=== PATIENT | male | born 1960 | race Caucasian/White ===

== ENCOUNTER 2020-07-27 09:33 | Outpatient (CLI) | payer BC, OTHER ==
[2020-07-27] MEDS ORDERED: LOVA20TA2 PO (09:49)
== END 2020-07-27 23:59 | disposition home or self-care (01) ==
LOC: STAR 09:33
PROVIDERS: ATTEND Orthopaedic Surgery
DX: Z02.9 Encounter for administrative examinations, unspecified (principal)

== ENCOUNTER 2020-08-04 05:41 | Inpatient (IN) | payer BC, OTHER ==
[~2020-08-04] VITALS: Ht 172.7 cm; Wt 71.0 kg
[~2020-08-04 05:41] MED LIST: LOVA20TA2 PO
[2020-08-04] MEDS ORDERED: LACTATED RINGERS 1,000 ML IV SCH (06:03)
[2020-08-04] MEDS ORDERED: CLINDAMYCIN 150 MG/ML, 6ML ONE (06:13)
[2020-08-04] MEDS ORDERED: CHLORHEXIDINE 15 ML UDC MM ONE (06:30)
[2020-08-04] MEDS ORDERED: LIDOCAINE-MPF 1%, 2ML INFIL ONE (06:30)
[2020-08-04] MEDS ORDERED: BUPIVACAINE LIPOSOME/PF 10ML INFIL ONE (06:42)
[2020-08-04] MEDS ORDERED: MIDAZOLAM 1 MG/ML, 2ML ONE (06:47)
[2020-08-04] MEDS ORDERED: FENTANYL PF 100 MCG/2ML ONE ×2 (06:47→09:56)
[2020-08-04] MEDS ORDERED: BUPIVACAINE/PF 0.5% ONE (08:17)
[2020-08-04] MEDS ORDERED: PROPOFOL 10 MG/ML, 20ML ONE (08:17)
[2020-08-04] MEDS ORDERED: DEXAMETHASONE 4 MG/ML, 1ML ONE (08:17)
[2020-08-04] MEDS ORDERED: CEFAZOLIN 1,000 MG ONE (08:17)
[2020-08-04] MEDS ORDERED: ROCURONIUM 10 MG/ML,10ML ONE (08:17)
[2020-08-04] MEDS ORDERED: ONDANSETRON 2MG/ML, 2ML ONE (08:17)
[2020-08-04] MEDS ORDERED: GLYCOPYRROLATE 0.2MG/1ML, 5ML ONE (08:17)
[2020-08-04] MEDS ORDERED: NEOSTIGMINE 1 MG/ML, 10ML ONE (08:17)
[2020-08-04] MEDS ORDERED: PROMETHAZINE 25 MG/ML, 1ML IVPush PRN (09:00)
[2020-08-04] MEDS ORDERED: OXYcodone 5 MG/5 ML ORAL.SOL UDC PO PRN (09:00)
[2020-08-04] MEDS ORDERED: hydrALAzine 20 MG/ML, 1ML IV PRN (09:00)
[2020-08-04] MEDS ORDERED: LORazepam 2 MG/ML, 1ML IVPush PRN (09:00)
[2020-08-04] MEDS ORDERED: ACETAMINOPHEN 325 MG TABLET PO PRN (09:00)
[2020-08-04] MEDS ORDERED: LABETALOL 5MG/ML, 20ML IV PRN (09:00)
[2020-08-04] MEDS ORDERED: ALBUTEROL SULFATE 2.5 MG/3 ML NPPB PRN (09:00)
[2020-08-04] MEDS ORDERED: MEPERIDINE/PF 25MG/0.5ML IVPush PRN (09:00)
[2020-08-04] MEDS ORDERED: OXYcodone 5 MG/5 ML ORAL.SOL UDC ONE (09:57)
[2020-08-04] MEDS: FENTANYL PF 100 MCG/2ML IV PRN ×2 (09:57→10:05)
[2020-08-04] MEDS: HYDROmorphone 1 MG/ML, 1ML INJ IVPush PRN ×2 (11:58→12:04)
== END 2020-08-04 12:20 | disposition home or self-care (01) | DRG 483 ==
LOC: ORIP 05:41
PROVIDERS: ADMIT Orthopaedic Surgery; ATTEND Orthopaedic Surgery
PROC: 0LS30ZZ Reposition Right Upper Arm Tendon, Open Approach (ICD-10-PCS; 2020-08-04)
PROC: 0RRJ0J7 Replacement of Right Shoulder Joint with Synthetic Substitute, Glenoid Surface, Open Approach (ICD-10-PCS; principal; 2020-08-04 07:30)
DX: M25.311 Other instability, right shoulder (principal); Z20.828 Contact with and (suspected) exposure to other viral communicable diseases; Z88.0 Allergy status to penicillin
CPT/HCPCS: 36415; J3490; S0020; S0077; 87635; J0690; J1100; J1170; J2250; J2405; J2704; J2710; J3010; J7120